=== PATIENT | female | born 1950 | race Caucasian/White ===

== ENCOUNTER 2017-05-03 18:57 | Emergency (ER) | payer MEDICARE ==
[~2017-05-03] VITALS: Ht 165.1 cm; Wt 90.0 kg
[~2017-05-03 18:57] MED LIST: ASPI325T32 PO; CIDE300T3 PO; LISI-571 PO; METF1000 PO; MULT1CAP33 PO; OXYC-284 PO
[2017-05-03 19:08] VITALS: BP 118/63; PULSE 92; RESP 15; O2SAT 98
[2017-05-03] MEDS ORDERED: 0.9% Sodium Chloride 1,000 ML IV ONE (19:42)
[2017-05-03] MEDS ORDERED: Ondansetron 2 mg/mL 2 mL Inj IVPUSH ONE (19:45)
--- NOTE | 2017-05-03 19:57 | ED.REPORT ---
HPI-Abd Pain F 40 and Over Date of Service May 03, 2017 ED Provider: Tomy Boyd PA-C Lisa 66-year-old female with chief complaint of diarrhea. Patient reports intermittent diarrhea over the last several months becoming near constant in the last 3 weeks. Patient reports taking a lot of Imodium. She describes her diarrhea is yellow and watery. Denies travel, strange food, drinking out of creeks or legs, sick contacts. Diarrhea is associated with nausea, reduced appetite, reduced drinking, feeling cold, crampy lower abdominal pain which has worsened in the last day. Diarrhea occasionally wakes her from sleep and she has had episodes of incontinence. Denies vomiting, melena, hematochezia, urinary symptoms, back pain. Patient reports a history of diabetes managed with metformin, history of kidney cancer with partial nephrectomy. Denies ever having a colonoscopy but admits to a family history of colon cancer. Nursing Notes Stated Complaint: ABDOMINAL PAIN, DIARRHEA Chief Complaint: Female Abdominal Pain Nursing Notes Reviewed: Yes Allergies: Coded Allergies: bupropion (Verified Allergy, Severe, 07/07/15) TAPE (Verified Allergy, Intermediate, 07/07/15) ALL KINDS OF TAPE amitriptyline (Verified Adverse Reaction, Severe, Hallucinations, 05/04/17) SEVERE CONFUSION hydrocodone (Verified Adverse Reaction, Severe, Hallucinations, 05/04/17) NIGHTMARES hydrocodone bitartrate (Verified Adverse Reaction, Mild, SENSITIVE, 05/04/17 ) NOT ALLERGIC, JUST SENSITIVE Scheduled Aspirin (Aspirin) 325 Mg Tablet 325 MG PO DAILY Cider Vinegar (Apple Cider Vinegar) 300 Mg Tablet 900 MG PO DAILY Lisinopril (Lisinopril) 5 Mg Tablet 5 MG PO DAILY Metformin (Glucophage) 1,000 Mg Tablet 1,000 MG PO BID Multivitamin (Multivitamins) 1 Each Capsule 1 EACH PO DAILY Scheduled PRN Oxycodone HCl/Acetaminophen 5-325 (Percocet 5-325) 1 Each Tablet 1 TABLET PO Q4H PRN PRN For Pain General Time Seen by MD: 19:27 Chief Complaint Diarrhea severe Sudden in Onset?: No Past Medical History Past Medical History Umbilical hernia Reports: Cancer, Diabetes mellitus, Hypertension Reports: Atrial fibrillation Past Surgical History L partial nephrectomy Reports: Smoking History Current Every Day Smoker, Heavy Tobacco Smoker Social History Alcohol Use: Denies alcohol use Review of Systems General: Admits chills Denies fever, malaise. HEENT: Denies congestion, headache, sore throat. Respiratory: Denies dyspnea, cough, shortness of breath, wheezing. Cardiovascular: Denies chest pain, palpitations. Gastrointestinal: Denies vomiting, admits diarrhea, abdominal pain. Genitourinary: Denies frequency, urgency, dysuria, hematuria. Otherwise as noted in HPI. Physical Exam General: Well appearing, well developed, obese, no acute distress. Head: Atraumatic, normocephalic. Eyes: No scleral icterus or injection. No discharge. Vision grossly intact. ENT: Voice clear, hearing grossly intact. Respiratory: Regular rate and rhythm. Breath sounds present, clear to auscultation and equal bilaterally. No respiratory distress. No increased work of breathing, speaks in complete sentences. Cardiovascular: Regular rate and rhythm, without murmur, gallop or rub. No pedal edema. Gastrointestinal: Obese abdomen diffusely tender most prominently in the left upper quadrant. Negative rebound. Bowel sounds are active. Prominent, reducible umbilical hernia. Skin: Warm and dry. Back: Normal to inspection, negative CVA tenderness Neurological: Grossly nonfocal. Psychological: Alert and oriented. Speech appropriate, linear and logical. Behavior appropriate. Vital Signs Vital Signs (First) Date Time Temp Pulse Resp B/P Pulse Ox O2 Delivery O2 Flow Rate FiO2 05/03/17 19:08 37.0 92 15 118/63 98 Room Air Normal Interpretation & Diagnostics Lab Results Interpretation Result Diagram: 05/03/17199905/03/171999 Test 05/03/17 20:00 White Blood Count 17.9th/mm3 (3.8-10.1) Red Blood Count 4.96mil/mm3 (3.90-5.20) Hemoglobin 15.9g/dL (12.0-15.6) Hematocrit 45.8% (35.0-46.0) Mean Corpuscular Volume 92.3fL (81-100) Mean Corpuscular Hemoglobin 32.1pg (27.0-35.0) Mean Corpuscular Hemoglobin Concent 34.7% (32.0-37.0) Red Cell Distribution Width 14.2% (12.3-15.4) Platelet Count 146bil/L (150-400) Neutrophils (%) (Auto) 79.0% (40-74) Lymphocytes (%) (Auto) 11.7% (14-46) Monocytes (%) (Auto) 8.1% (4-12) Eosinophils (%) (Auto) 0.7% (0-5) Basophils (%) (Auto) 0.2% (0-3) Sodium Level 138mEq/L (134-144) Potassium Level 4.6mEq/L (3.5-5.2) Chloride Level 99mEq/L (97-108) Carbon Dioxide Level 14mmol/L (18-29) Blood Urea Nitrogen 11mg/dL (8-27) Creatinine 0.78mg/dL (0.57-1.00) Estimat Glomerular Filtration Rate 106mL/min (>59) Glucose Level 105mg/dL (60-99) Lactic Acid Level 1.0mmol/L (0.4-2.0) Calcium Level 9.9mg/dL (8.5-10.1) Total Bilirubin 0.3mg/dL (0.0-1.2) Aspartate Amino Transf (AST/SGOT) 22U/L (0-50) Alanine Aminotransferase (ALT/SGPT) 21U/L (0-32) Alkaline Phosphatase 64U/L (25-165) Total Protein 7.3g/dL (6.4-8.4) Albumin 4.1g/dL (3.4-5.0) Lipase 20U/L (13-60) Hold Benavidez Top Tube Received (Received) CT Abd / Pelvis Interpretation PROCEDURE: CT ABDOMEN AND PELVIS WITH CONTRAST ([id number]) INDICATIONS: abdominal pain, left upper quadrant tenderness IMPRESSION: 1. Segmental colitis of the distal descending and sigmoid colon, likely infectious or inflammatory in etiology. 2. Colonic diverticulosis. Interpretation / Wet Read by: Interpret - Radiologist Re-Eval/Medical Decision Med Decision/Clinical Course 66-year-old female with a chief complaint of diarrhea and abdominal pain. Reports a month long history of intermittent diarrhea worsening in the last several weeks. Reports using a great deal of Imodium. Complains of watery yellow diarrhea, crampy lower abdominal pain. Visual examination reveals moderate to severe tenderness globally in her abdomen worse over the left upper quadrant. Otherwise normal examination, normal vital signs. CBC, CMP, lipase and CT scan are ordered as well as stool cultures. CBC reveals a leukocytosis at 17.9, lactic acid was ordered and is normal at 1. CMP is unremarkable, lipase is normal. Care is transferred to Dr. Zee at shift change, while awaiting CT results I assumed care from Tomy Boyd. Reviewed CT results with pt. Significantly elevated leukocyotis noted, but normal vitals and symptoms x3 weeks. Pt unable to leave stool cx so lab slip given for outpt stool pcr test. will advise on results. Suspect c diff. Pt understands and agrees with plan. d/c home with percocet and zofran and instructions for close f/u. 4 siblings have from colon cancer and pt has never had colonoscopy. she certainly needs to have one and GI contact info given. Discharge & Departure Shift Change Sign-Out Patient Care Transferred: Yes (Dr. Zee) Discussed Complaint(s): Yes Laboratory Evaluation: Lab evaluation discussed Imaging Studies: Ordered, not yet done Primary Impression: Colitis Additional Impressions: Leukocytosis Leukocytosis type: unspecified Qualified Code: D72.829 - Elevated white blood cell count, unspecified Diarrhea Diarrhea type: unspecified type Qualified Code: R19.7 - Diarrhea, unspecified Dehydration Disposition: Home Discharge Condition All VS Reviewed: Yes Condition: Stable Patient Instructions: Gastroenteritis (ED) Additional Instructions: Thank you for trusting us with your care today. Your CT scan shows colitis which is inflammation or infection of your sigmoid and descending colon. Please bring a stool sample with the accompanying lab slip tomorrow for further testing to determine if there is an infectious etiology for this. Stop taking Imodium as this could make an infection worse. Drink plenty of electrolytes and stay hydrated. Take Percocet as needed for pain, Zofran as needed for nausea. If your infection test is negative, you will need to see gastroenterology for a colonoscopy. You need to see them either way for a colonoscopy given your very strong family history of colon cancer. Return to the ER for new or worsening symptoms. Follow-up with your primary care provider next week. Referrals: Kian Boyd MD (PCP) Ivan Shah MD EDSupervising Provider for APC: Laron Zee DO copies to: Ivan Shah MD; Kian Boyd MD, Seth PA-C May 03, 2017 19:57 Laron Zee DO May 04, 2017 00:35
[2017-05-03 20:09] LABS: BASOPHILS % (AUTO) 0.2 % (0-3); EOSINOPHILS % (AUTO) 0.7 % (0-5); MONOCYTES % (AUTO) 8.1 % (4-12); Mean Corpuscular Hemoglobin 32.1 pg (27.0-35.0); Mean Corpuscular Volume 92.3 fL (81-100); Platelet Count 146 bil/L (150-400)
[2017-05-03 21:40] VITALS: BP 121/45; PULSE 66; RESP 20; O2SAT 96
--- NOTE | 2017-05-03 22:23 | DRSVH ---
PROCEDURE: CT ABDOMEN AND PELVIS WITH CONTRAST ([id number]) INDICATIONS: abdominal pain, left upper quadrant tenderness TECHNIQUE: After the administration of oral and intravenous contrast, 5 mm thick sections acquired from the diap hragms to the symphysis. 5 mm thick coronal and sagittal reformats were performed. For radiation do se reduction, the following was used: automated exposure control, adjustment of mA and/or kV accordi ng to patient size. COMPARISON: [facility], CT, ABD/PELVIS W/O CON (PN), 02/25/2015, 13:35. FINDINGS: Image quality: There are a few scattered surgical clips in the left abdomen with associated metallic streak artifact.. ABDOMEN: Lung bases: There is minimal atelectasis. A small hiatal hernia is present. Heart size is normal. Solid organs: Liver and spleen are normal in size and enhancement. Gallbladder appears within clay l limits without calcified gallstones. Biliary system is non-dilated. Pancreas enhances normally. There is thickening of the left adrenal gland without discrete nodule. Kidneys demonstrate no hydron ephrosis. Peritoneum and bowel: Stomach and small bowel loops are normal in caliber and wall thickness. There is segmental wall thickening of the colon extending from the distal descending colon into the sigmoi d colon with associated pericolonic fat stranding and mucosal hyperemia system with colitis, likely i nfectious or inflammatory. There are multiple colonic diverticula present without definite associate d inflammatory fat stranding or fluid. No free fluid or air. Nodes and vessels: No retroperitoneal or mesenteric adenopathy. Aorta and inferior vena cava are no rmal in caliber. Miscellaneous: There is a fat containing infraumbilical ventral abdominal hernia. PELVIS: Genitourinary: Bladder wall thickness is normal. Miscellaneous: No inguinal hernias or adenopathy. Bones: No suspicious bony lesions. No vertebral body compression fractures. IMPRESSION: 1. Segmental colitis of the distal descending and sigmoid colon, likely infectious or inflammatory i n etiology. 2. Colonic diverticulosis. Dictated by: Armando Simons M.D. on 05/03/2017 at 22:17 Approved by: Armando Simons M.D. on 05/03/2017 at 22:22
[2017-05-04 00:09] VITALS: BP 103/64; PULSE 71; RESP 16; O2SAT 95
[2017-05-04] MEDS ORDERED: _Ondansetron ODT 4 mg Tablet PO PRN (00:35)
[2017-05-04] MEDS ORDERED: _oxyCODONE/APAP 5-325 mg Tablet PO PRN (00:35)
== END 2017-05-04 01:05 | disposition home or self-care (01) ==
LOC: SED 18:57
DX: K52.9 Noninfective gastroenteritis and colitis, unspecified (principal); D72.829 Elevated white blood cell count, unspecified; E86.0 Dehydration; E11.9 Type 2 diabetes mellitus without complications; Z79.84 Long term (current) use of oral hypoglycemic drugs; I10 Essential (primary) hypertension; Z79.82 Long term (current) use of aspirin; F17.200 Nicotine dependence, unspecified, uncomplicated; Z88.5 Allergy status to narcotic agent; Z88.8 Allergy status to other drugs, medicaments and biological substances
CPT/HCPCS: 36415; 74177; 80053; 83605; 83690; 85025; 87507; 96361; 96374; 96375; 99285; J2270; J2405; J7030; Q9967